=== PATIENT | male | born 2000 | race Caucasian/White ===

== ENCOUNTER 2023-08-09 01:11 | Emergency (ER) | payer BC, SELFPAY ==
[2023-08-09 01:13] VITALS: BP 120/87; PULSE 111; PULSE 98; RESP 16; RESP 18; TEMP 36; O2SAT 100; O2SAT 98
[2023-08-09 01:14] VITALS: TEMP 36; BMI 23.8
[2023-08-09] MEDS: 0.9% Normal Saline (1000mL) 1,000 ML 999 ML IV (01:42)
[2023-08-09] MEDS: Ondansetron 4 MG/2 ML Vial IV (01:58)
[2023-08-09] MEDS: Famotidine 200 MG/20 ML MDV 20 MG in 0.9% Normal Saline (Pres. free 8 ML 300 MG IV (01:58)
--- NOTE | 2023-08-09 02:43 | EKG12_ITS ---
Test Reason : DYSRHYTHMIA Blood Pressure : / mmHG Vent. Rate : 093 BPM Atrial Rate : 000 BPM P-R Int : 000 ms QRS Dur : 096 ms QT Int : 354 ms P-R-T Axes : 000 063 025 degrees QTc Int : 440 ms Atrial fibrillation Abnormal ECG Confirmed by Carlos Eduardo Denise ([id number]), editorial assistant AMILCAR GONZALEZ ([id number]) on 08/10/2023 9:42:44 AM Referred By: Confirmed By:Carlos Eduardo Denise
[2023-08-09] MEDS: Metoprolol Tartrate 5 MG/5 ML Vial IV (03:05)
[2023-08-09 03:18] VITALS: BP 112/77; PULSE 92; RESP 17; O2SAT 98
[2023-08-09 03:20] LABS: Absolute Lymphocyte Count 1.48 X10^3/uL (0.83-4.51); Absolute Neutrophil Count 8.2 X10^3/uL (2.0-7.7); Basophil# 0.02 X10^3/uL; Basophil% 0.2 % (0-1); Eosinophil# 0.02 X10^3/uL; Eosinophils% 0.2 % (0-5); Hematocrit 43.3 % (40-54); Hemoglobin 14.5 g/dL (13.0-16.5); Lymphocyte # 1.48 X10^3/ul (0.83-4.51); Lymphocyte % 14.6 % (19-41); Mean Corp Hgb Conc 33.5 g/dL (32-36); Mean Corpuscular Hgb 30.2 pg (27.0-32.0); Mean Corpuscular Volume 90.2 fL (80-94); Mean Platelet Vol. 9.8 fl (6.2-12.0); Monocyte# 0.42 X10^3/uL; Monocyte% 4.1 % (0-10); NRBC Flagged by Analyzer 0 % (0-5); Neutrophil # 8.16 X10^3/uL (2.7-7.7); Neutrophil % 80.6 % (47-70); Platelet Count 209 K/mm3 (150-450); RBC Distribution Width CV 12.4 % (11.6-14.6); White Blood Count 10.1 K/mm3 (4.4-11.0)
[2023-08-09 03:39] LABS: Anion Gap 9 (5-15); BUN 17 mg/dL (7-18); BUN/Creat Ratio 17.7 RATIO (10-20); Calcium,Total 8.9 mg/dL (8.5-10.1); Chloride 108 mmol/L (98-107); Creatinine, Serum 0.96 mg/dL (0.70-1.30); EST Glomerular Filtration Rate 105 mL/min (>60); Est Glom Filt Rate - Afr Amer 127 mL/min (>60); Estimated Creatinine Clearance 117.76 ml/min; Glucose 122 mg/dL (74-106); Potassium 4.3 mmol/L (3.5-5.1); Sodium Level 142 mmol/L (136-145); Thyroid Stim Hormone (TSH) 0.66 uIU/mL (0.358-3.74)
--- NOTE | 2023-08-09 03:56 | EX.ED.DYSGE1 ---
HPI History of Present Illness Chief Complaint: ETOH Intox Informant: patient, spouse/S.O. and family Narrative Narrative: Patient is a 23-year-old male with past medical history of GERD. He states that he went out for his birthday and drank quite a lot he states after doing this she began having intractable bouts of vomiting. He states this been ongoing for the last 1 to 2 hours and has not shown any signs of stopping. With concern he may need IV fluids based on the persistent vomiting he was brought in for evaluation [facility] Medical History (Updated 08/09/23 @ 03:[address] Wilmer Paz, DO) Environmental allergies Home Medications ?Medication ?Instructions ?Recorded ?Last Taken ?Type cetirizine 10 mg capsule (Zyrtec) 10 mg PO QDAY 07/06/17 Unknown History prednisone 10 mg tablet 10 mg PO .COMPLEX #30 tabs 07/22/20 Unknown Rx apixaban 5 mg tablet (Eliquis) 5 mg PO BID 14 days #28 tabs 08/09/23 Unknown Rx metoprolol tartrate 25 mg tablet 25 mg PO BID 14 days #28 tabs 08/09/23 Unknown Rx Allergy/AdvReac Type Severity Reaction Status Date / Time No Known Allergies Allergy Unverified 07/22/20 09:46 Family History Other Cancer Heart disease Hypertension Social History Smoking Status: Never smoker alcohol intake: never substance use type: does not use what type of physical activity do you participate in: walking, running and weight training frequency: 3-4 times per week ROS ROS ED Constitutional Constitutional ED: Denies chills or fever(s) Eyes Eyes: Denies change in vision ENT ENT ED: Denies sore throat Cardiovascular Cardiovascular: Denies chest pain or palpitations Respiratory/Chest Respiratory/Chest: Denies cough or dyspnea Gastrointestinal Gastrointestinal: Reports nausea and vomiting; Denies abdominal pain or diarrhea Genitourinary Genitourinary ED: Denies dysuria Musculoskeletal Musculoskeletal: Denies myalgias Integumentary Denies rash Neurologic Neurologic: Denies headache(s) Hematologic/Lymphatic Hematologic/Lymphatic: Denies easy bleeding or easy bruising EXAM Physical Exam Const Vital Signs: 08/09/23 01:13 08/09/23 01:13 08/09/23 01:14 Temperature 96.8 F L 96.8 F L Temperature Source Oral Axillary Pulse Rate 111 H 98 Respiratory Rate 16 18 Blood Pressure 120/87 H 120/87 H Blood Pressure Mean 98 98 Blood Pressure Source Monitor Blood Pressure Position Supine Blood Pressure Location Right Arm Pulse Ox 98 100 Oxygen Delivery Method Room Air Room Air 08/09/23 03:18 08/09/23 04:23 Temperature 98.2 F Temperature Source Pulse Rate 92 82 Respiratory Rate 17 16 Blood Pressure 112/77 107/74 Blood Pressure Mean 88 85 Blood Pressure Source Blood Pressure Position Blood Pressure Location Pulse Ox 98 98 Oxygen Delivery Method Room Air Positive well nourished and well developed General Appearance ED: well developed; Negative for pallor HEENT Reports moist mucous membranes HEENT Narrative: No tongue or lip swelling no oral lesions no airway edema or compromise Eyes PERRL and EOMs intact bilaterally General Eye ED: Negative for scleral icterus Neck supple Chest Wall palpation of chest normal Chest Narrative: No bony deformity or crepitance Resp normal respiratory effort and clear to auscultation bilaterally Cardio regular rate and regular rhythm Rate: other Other Details: Heart is regular rate and rhythm without murmurs rubs or gallop Radial and carotid pulses are equal and symmetric GI non-tender, non-distended and no masses GI Narrative: Abdomen is soft nontender nondistended with hyperactive bowel sounds No voluntary guarding or rigidity or pulsatile mass Auscultation: hyperactive bowel sounds Palpation: soft Extremity normal to inspection Neuro oriented x3, CN's II-XII intact bilaterally and no sensory deficits noted Sensorium / Orientation: alert Motor Exam: strength 5/5 throughout Psych mental status grossly normal Skin no rashes or lesions noted, no wounds and skin turgor normal General Skin Exam: Negative for jaundice or pallor MDM MDM MDM Narrative Medical decision making narrative: Patient arrived to the ER with stable vitals and had intractable nausea and vomiting status post alcohol intoxication. This time his physical exam is consistent with nausea vomiting from the intoxication and I have low concern this is related to biliary colic or acute cholecystitis or pancreatitis. Therefore patient had IV fluids as well as Pepcid and Zofran ordered. While he was receiving his treatment he did have a bout of vomiting and following this his rhythm looked irregular on the monitor worker. Therefore a twelve-lead EKG was obtained and shows atrial fibrillation at a regular rate of 93. Basic labs were then ordered to check for potential electrolyte abnormality or thyroid disease as the cause of his A-fib. Workup revealed no clinically significant finding. The patient is rate controlled he does not have intractable chest pain or shortness of breath there is no need for electrolyte replacement and therefore I do not feel there is need for admission to the hospital. Patient was given Lopressor for rate control but despite obtaining this did not have spontaneous cardioversion. I have low concern for DVT/PE as we were able to witness the spontaneous change from normal sinus to A-fib and therefore he is only been on it for roughly 1 to 2 hours and there is extremely low risk for DVT/PE forming during this time. The patient was placed on Eliquis to prevent blood clot and metoprolol for rate control and he can see cardiology on an outpatient basis. However at this time as he is hemodynamically stable there is no need for emergent cardioversion History & Record Review Discussion w/independent historian: Patient and Family Lab Data Attestation: I reviewed the patient's lab results. Labs: Laboratory Results - last 24 hr 08/09/23 02:57 WBC 10.1 RBC 4.80 Hgb 14.5 Hct 43.3 MCV 90.2 MCH 30.2 MCHC 33.5 RDW Std Deviation 41.0 RDW Coeff of Sukhi 12.4 Plt Count 209 MPV 9.8 Immature Gran % (Auto) 0.300 Neut % (Auto) 80.6 H Lymph % (Auto) 14.6 L Butts % (Auto) 4.1 Eos % (Auto) 0.2 Baso % (Auto) 0.2 Absolute Neuts (auto) 8.2 H Absolute Lymphs (auto) 1.48 Nucleated RBC % 0 Sodium 142 Potassium 4.3 Chloride 108 H Carbon Dioxide 25.0 Anion Gap 9 BUN 17 Creatinine 0.96 Estim Creat Clear Calc 117.76 Est GFR (MDRD) Af Amer 127 Est GFR (MDRD) Non-Af 105 BUN/Creatinine Ratio 17.7 Glucose 122 H Calcium 8.9 Magnesium 2.0 TSH 0.66 Discharge Plan Triage Chief Complaint: ETOH Intox ED Provider: Wilmer Paz Dx/Rx/DC Orders Clinical Impression: New onset atrial fibrillation, Alcohol intoxication, Nausea & vomiting Instructions: AFib Dc, ED Alcohol Intoxication Prescriptions: New metoprolol tartrate 25 mg tablet 25 mg PO BID 14 Days Qty: 28 0RF Eliquis 5 mg tablet 5 mg PO BID 14 Days Qty: 28 0RF No Action cetirizine [Zyrtec] 10 mg capsule 10 mg PO QDAY prednisone 10 mg tablet 10 mg PO .COMPLEX Qty: 30 0RF Rx Instructions: Take 4 pills for 3 days, 3 pills for 3 days, 2 pills for 3 days, take 1 pill for 3 days Primary Care Provider: Diego Saleh Referrals: Diego Saleh MD [Primary Care Provider] - Carlos Eduardo Denise MD [Med Staff - Active Staff] - Activity Restrictions/Additional Instructions: You went into an abnormal heart rhythm this evening known as atrial fibrillation. This can cause a higher risk for blood clot and/or stroke. Take the Eliquis/blood thinner as directed to prevent this. Use the metoprolol to control your heart rate. Follow-up with cardiology to discuss further evaluation and treatment options and return to the ER if you have worsening of symptoms or any further concerns. Print Language: Maldivian Disposition Disposition: Home, Self Care Discharge Date/Time: 08/09/23 04:34
[2023-08-09] MEDS: APIXABAN 5 MG TABLET PO (04:21)
[2023-08-09] MEDS: Metoprolol Tartrate 25 MG Tablet PO (04:21)
[2023-08-09 04:23] VITALS: BP 107/74; PULSE 82; RESP 16; TEMP 36.8; O2SAT 98
== END 2023-08-09 04:34 | disposition home or self-care (01) ==
PROVIDERS: Emergency Provider Emergency Medicine; PCP Pediatrics; Visit Provider Emergency Medicine
DX: F10.129 Alcohol abuse with intoxication, unspecified (principal); I48.91 Unspecified atrial fibrillation; R11.2 Nausea with vomiting, unspecified; K21.9 Gastro-esophageal reflux disease without esophagitis
CPT/HCPCS: 80048; 83735; 84443; 85025; 93005; 96365; 96366; 96375; 99283; J7030; A4216; J2405; J3490